=== PATIENT | male | born 1985 | race Caucasian/White ===

== ENCOUNTER 2022-02-05 04:44 | Emergency (ER) | payer OTHER ==
[~2022-02-05] VITALS: Ht 182.9 cm; Wt 79.4 kg
[2022-02-05] MEDS ORDERED: CARBATROL200 MG PO (05:33)
[2022-02-05] MEDS ORDERED: TRAZODONE HCL150 MG PO (05:33)
== END 2022-02-05 06:10 | disposition home or self-care (01) ==
LOC: ED 04:44
DX: G43.909 Migraine, unspecified, not intractable, without status migrainosus (principal); Z79.899 Other long term (current) drug therapy
CPT/HCPCS: 36415; 80048; 80156; 85025; 99284